=== PATIENT | female | born 1995 | race Hispanic/Latino ===

== ENCOUNTER 2017-02-15 20:49 | Emergency (ER) | payer OTHER ==
[~2017-02-15] VITALS: Ht 167.6 cm; Wt 81.8 kg
[2017-02-15 21:00] VITALS: BP 124/82; PULSE 81; RESP 16; O2SAT 98
--- NOTE | 2017-02-15 21:17 | ED.REPORT ---
HPI-Trauma Minor / Fall Date of Service February 15, 2017 ED Provider: Ryan Fonseca DO Patient is a 22 year old female who presents to the ED due to a facial injury. Associated symptoms include a laceration the left lower side of the lip, lip swelling and headache. She denies losing consciousness. The patient reports that she was playing soccer and someone kicked the ball and it hit her in the face. Nursing Notes Stated Complaint: LIP PAIN/INJURY Chief Complaint: Head, Face, Neck Trauma Nursing Notes Reviewed: Yes Allergies: Coded Allergies: No Known Allergies (Unverified , 02/15/17) General Time Seen by MD: 21:17 Chief Complaint Face injury Hx Obtained From: Patient Arrived By: Walk-in Onset Occurred: Just prior to arrival Symptom Duration: Since onset Location: Face Context: Immunizations Unknown Recent Healthcare: No recent doctor visit, No recent hospitalization Past Medical History Past Medical History none reported Smoking History Unknown if Ever Smoker Social History Other Social History: Local resident Ambulatory Status Independent Review of Systems Ears / Nose / Throat: Reports: Mouth pain Respiratory: Denies: Non-productive cough, Shortness of breath Musculoskeletal: Denies: Neck pain Neurologic: Reports: Headache, Denies: Change LOC Complete sys rev & neg: except as marked. GI: Denies: Vomiting Physical Exam Initial Vital Signs Vital Signs (First) Date Time Temp Pulse Resp B/P Pulse Ox O2 Delivery O2 Flow Rate FiO2 02/15/17 21:00 36.4 81 16 124/82 98 Room Air Initial VS: Reviewed General/Constitutional: Awake, Alert, No acute distress Neck: Atraumatic, Supple, Full range of motion Head / Eyes: Normocephalic, PERRL, EOMI maxilla tenderness loose teeth lip laceration, no need for stitches ENT: Atraumatic, Airway patent, Mucous membranes moist Respiratory / Chest: Atraumatic, Breath sounds NL, Breath sounds = bilat Cardiovascular: Heart rate NL, Regular rhythm, Heart sounds NL Back: Atraumatic, Full range of motion Upper Extremity / MS: Atraumatic, Full range of motion Lower Extremity / Pelvis / MS: Atraumatic, Full range of motion Skin: Atraumatic, Color NL, No rash, Warm, Dry Neurologic: Oriented X3, Speech NL, No motor deficits, No sensory deficits, Gait NL Psychiatric: Affect NL, Mood NL Interpretation & Diagnostics X-Ray Interpretation Xray Interpretation: Mandible and Zygomatic Bone X-Ray: No evidence of fracture Interpretation / Wet Read by: Wet read ED physician Re-Eval/Medical Decision Med Decision/Clinical Course superficial laceration to the lower lip, no need for sutures. Wet read of X-ray shows no fracture. No fracture identified. We will treat symptomatically. We will prophylax the wound because it is technically a bite. Routine opiate warnings given Re-Evaluation/Progress : Time of Eval: 22:37 Re-Evaluation/Progress Note: Discussed X-ray results and plan for discharge. The patient understands and agrees to the plan for discharge. All questions were addressed. Counseled Regarding: Diagnosis, Lab results, Need for follow-up, When/why to return to ED Discharge & Departure Impression: Primary Impression: Lip laceration Encounter type: initial encounter Qualified Code: S01.511A - Laceration without foreign body of lip, initial encounter Additional Impression: Facial contusion Encounter type: initial encounter Qualified Code: S00.83XA - Contusion of other part of head, initial encounter Disposition: Home Discharge Condition All VS Reviewed: Yes Condition: Stable Patient Instructions: Facial Contusion (ED), Facial Laceration (ED) Additional Instructions: It did not look like you had a fracture. Take Augmentin 2x a day for 3 days. You can take 1-2 [place] every 6 hours as needed for pain. Do not drink alcohol or drive while taking the pain medication. Do not consume Acetaminophen while taking the medication. Radiology will read the X-ray tomorrow and you can call Sunday for results. Follow up with your primary care physician next week. Return to the emergency department if you develop any new or worsening symptoms including headache or vomiting. Referrals: [facility] Alexis Attestation Portions of this note were transcribed by Iza Acosta. I, Dr. Fonseca personally performed the history, physical exam and medical decision-making; I reviewed and confirmed the accuracy of the information in the transcribed note. Signed by: Alexis Marquez, 02/15/17 and 2240 copies to: [facility] Ryan Fonseca DO February 15, 2017 21:17 Felicita Acosta February 15, 2017 21:58
[2017-02-15] MEDS ORDERED: Amoxicillin-Clav 875-125 mg Tablet PO ONE (21:25)
[2017-02-15] MEDS ORDERED: _HYDROcodone/APAP 5-325 mg Tablet PO PRN (21:25)
[2017-02-15 22:48] VITALS: BP 123/73; PULSE 72; RESP 16; O2SAT 97
--- NOTE | 2017-02-16 08:08 | DRSVH ---
PROCEDURE: X-RAY MANDIBLE COMPLETE, MINIMUM FOUR VIEWS ([id number]) INDICATIONS: facial trauma TECHNIQUE: 4 views of the mandible were acquired. COMPARISON: None. FINDINGS: Bones: No fractures or dislocations. No suspicious bony lesions. Soft tissues: Visualized sinuses appear clear. No suspicious soft tissue densities. IMPRESSION: No fracture Dictated by: Naldo Diamond M.D. on 02/16/2017 at 8:05 Approved by: Naldo Diamond M.D. on 02/16/2017 at 8:06
--- NOTE | 2017-02-16 08:10 | DRSVH ---
PROCEDURE: X-RAY FACIAL BONES COMPLETE, MINIMUM THREE VIEWS ([id number]) INDICATIONS: facial trauma TECHNIQUE: 3 views of the facial bones were acquired. COMPARISON: None. FINDINGS: Sinuses: Visualized sinuses demonstrate no air-fluid levels or mucosal thickening. Bones: No fractures. No suspicious bony lesions. Orbital rims and zygomatic arches appear intact. Soft tissues: No suspicious soft tissue densities. IMPRESSION: No fracture Dictated by: Naldo Diamond M.D. on 02/16/2017 at 8:07 Approved by: Naldo Diamond M.D. on 02/16/2017 at 8:08
== END 2017-02-15 22:49 | disposition home or self-care (01) ==
LOC: SED 20:49
DX: S01.511A Laceration without foreign body of lip, initial encounter (principal); S00.83XA Contusion of other part of head, initial encounter; W21.02XA Struck by soccer ball, initial encounter; Y93.66 Activity, soccer; Y92.9 Unspecified place or not applicable; Y99.8 Other external cause status